=== PATIENT | female | born 1965 | race Caucasian/White ===

== ENCOUNTER 2019-12-14 05:40 | Day surgery (SDC) | payer OTHER ==
--- NOTE | 2019-12-06 18:09 | HP ---
CC: Dr. Elam; Dr. Milan * PREOPERATIVE HISTORY AND PHYSICAL: DATE OF ADMISSION/SURGERY: 12/14/19 This patient is scheduled for same-day surgery admission by Dr. Anaya on , 12/14/19. DATE OF PREOPERATIVE HISTORY AND PHYSICAL EXAMINATION: 12/06/19. ATTENDING SURGEON: Dr. Cyndi Anaya * (dictated by Aliyah Gupta NP). CHIEF COMPLAINT: Primary hyperparathyroidism. HISTORY OF PRESENT ILLNESS: The patient is a 54-year-old female with a history of asthma; psoriatic arthritis; obstructive sleep apnea, on CPAP, who was recently found to have elevated calcium levels on routine labs. She was referred to Dr. Elam, who has been following her for mild primary hyperparathyroidism. Her workup has included a normal 24-hour urinary calcium and repeat labs. Her calcium levels have been intermittently high or high normal, she did have a PTH and calcium that were simultaneously elevated in October of 2018 that confirms her diagnosis of primary hyperparathyroidism. 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 The patient states that she broke her right great toe approximately 15 years ago; she denies any history of kidney stones; her maternal grandmother had a thyroid issue, but she does not know the nature of the condition. The patient denies any head or neck radiation or neck surgery. She is a former smoker. Dr. Anaya reviewed the findings with the patient and has recommended parathyroidectomy as a same-day procedure under general anesthesia; Dr. Anaya discussed the nature of the surgical procedure, the rationale for the procedure , the relevant risks and benefits and today, I reviewed the expected postoperative care and recovery. The patient has had a chance to ask questions and stated that she understand the information and is satisfied with the answers given to her questions. She will sign surgical consent on the day of surgery. PAST MEDICAL HISTORY: Psoriatic arthritis, followed by Dr. 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 PAST SURGICAL HISTORY: section x3; bunionectomy; and toe surgery, right foot in 2016. MEDICATIONS: 1. Otezla 30 mg p.o. b.i.d., which Dr. Carroll stated that the patient could continue before and after surgery. 2. Gabapentin 100 mg 1 capsule b.i.d. 3. B12 5000 mcg sublingual daily. 4. FeroSul 325 mg 1 tablet b.i.d. 5. Vitamin D, dose unknown daily. 6. Symbicort 80/4.5 mcg per actuation 2 puffs b.i.d. 7. Ventolin 2 puffs 4 times a day p.r.n. 8. Flonase 1 spray in each nostril b.i.d. 9. Spiriva 2.5 mcg per actuation 2 puffs daily. 10. Multivitamin 1 tablet daily. 11. Montelukast 10 mg p.o. daily. 12. Cetirizine 10 mg p.o. daily. ALLERGIES: PENICILLIN and TETRACYCLINE both cause shortness of breath, itching , and swelling. She is also allergic to YELLOW JACKET VENOM and she has food allergies to STRAWBERRIES and RASPBERRY JUICE. FAMILY HISTORY: Father at age 72, history of hypercholesterolemia, hypertension. Mother is alive at age 74 with psoriasis, arthritis, and sleep apnea. Maternal grandmother with a history of some type of thyroid disease. No known clotting disorders, bleeding tendencies, or anesthesia complications. SOCIAL HISTORY: She is single and lives with her male partner. She is unemployed; she quit smoking 1 year ago after smoking off and on for approximately 30 years. She denies the use of alcohol or other substances. She is exposed to secondhand smoke. REVIEW OF SYSTEMS: Constitutional: No fevers, chills, excessive fatigue, or weight loss. General: No history of anesthesia complications. No history of deep vein thrombosis or pulmonary embolism. No bleeding tendencies or history of blood transfusions. EENMT: No significant visual difficulties. No problems with hearing. No sore throat or sinus drainage. Endocrine: No diabetes. Parathyroid disease as described in history of present illness. Respiratory: No dyspnea on exertion. No chronic cough. Cardiovascular: No anginal chest pain or palpitations. Gastrointestinal: No nausea, vomiting, diarrhea, GI bleeding, or constipation. Genitourinary: No dysuria. Integumentary: Psoriatic arthritis with multiple psoriatic skin lesions primarily over her elbows, legs, and flank regions. Neurologic: No headache or blurred vision; she does have polyneuropathy with numbness and tingling in fingers and feet. Psychiatric: No reported anxiety, depression, or insomnia. PHYSICAL EXAMINATION GENERAL SURVEY: The patient is a 54-year-old overweight female, in no acute distress, well developed. VITAL SIGNS: Height 60.75 inches, weight 162 pounds, body mass index 30.9. Blood pressure 116/74, pulse 88, respiratory rate 18, temperature 97.6 tympanic. HEENT: Benign. NECK: Supple. No cervical lymphadenopathy. No thyromegaly. LUNGS: Breath sounds bilaterally clear and equal. HEART: Regular rate and rhythm. No murmurs or rubs appreciated. ABDOMEN: Active bowel sounds. Soft, nondistended, nontender throughout. BACK: No CVA tenderness. PELVIC: Exam deferred. RECTAL: Exam deferred. EXTREMITIES: Warm without edema. NEUROLOGIC: Alert and oriented x3. Steady gait. SKIN: Multiple psoriatic lesions on elbows, legs, and flanks. No drainage or signs of infection. IMPRESSION: Primary hyperparathyroidism. PLAN: Same-day surgery admission to Dr. Cyndi Anaya's service for parathyroidectomy on , 12/14/19. STERLING GUPTA, AMILCAR [id number]/[facility] #: [id number] ASIA
[~2019-12-14 05:40] MED LIST: Buffered Lidocaine 1% SYRIN* 1 ML/SYRINGE INTRADERM ONE
[2019-12-14] MEDS ORDERED: Lactated Ringers 1000 ML Bag* 1,000 ML IV SCH (06:00)
[2019-12-14] MEDS ORDERED: Famotidine IV* 10 MG/ML 2 ML (20 mg) IV ONE (06:00)
[2019-12-14] MEDS ORDERED: Buffered Lidocaine 1% SYRIN* 1 ML/SYRINGE INTRADERM ONE ×2 (06:16→07:11)
[2019-12-14] MEDS ORDERED: Famotidine IV* 10 MG/ML 2 ML (20 mg) ONE (06:16)
[2019-12-14] MEDS ORDERED: Lidocaine 1% INJ* 10 MG/ML 30 ML SDV ONE (07:13)
[2019-12-14] MEDS ORDERED: Bupivacaine 0.25% SDV* 30 ML ONE (07:13)
[2019-12-14] MEDS ORDERED: Propofol* 10 MG/ML 20 ML BTL ONE (07:15)
[2019-12-14] MEDS ORDERED: Dexamethasone IV* 4 MG/ML 1 ML (4 MG) ONE (07:15)
[2019-12-14] MEDS ORDERED: Midazolam* 1 MG/ML 5 ML VIAL (5 MG) ONE (07:15)
[2019-12-14] MEDS ORDERED: Scopolamine 1.5 mg* PATCH ONE (07:15)
[2019-12-14] MEDS ORDERED: Ondansetron INJ* 2 MG/ML VIAL ONE (07:15)
[2019-12-14] MEDS ORDERED: Lidocaine 2% PF * 5 ML VIAL ONE (07:15)
[2019-12-14] MEDS ORDERED: Succinylcholine* 20 MG/ML 10 ML VIAL ONE (07:15)
[2019-12-14] MEDS ORDERED: KETAMINE HCL* 50 MG/ML 10 ML VIAL ONE (07:15)
[2019-12-14] MEDS ORDERED: fentaNYL* 50 MCG/ML 2 ML VIAL (100 MCG VIAL) ONE (07:15)
[2019-12-14] MEDS ORDERED: Levalbuterol HFA INHALER* 1 PUFF MDI ONE (07:59)
[2019-12-14] MEDS ORDERED: fentaNYL* 50 MCG/ML 2 ML VIAL (100 MCG VIAL) IV PRN (08:36)
[2019-12-14] MEDS ORDERED: Naloxone* 0.4 MG/ML 1 ML VIAL IV PRN (08:36)
[2019-12-14] MEDS ORDERED: Acetaminophen IV 1GM/100ML * 1,000 MG/100 ML VIAL IVPB ONE (08:36)
[2019-12-14] MEDS ORDERED: Levalbuterol 0.63MG/3ML NEB* UNIT OF USE INH PRN (08:36)
[2019-12-14] MEDS ORDERED: Ondansetron INJ* 2 MG/ML VIAL IV PRN (08:36)
[2019-12-14] MEDS ORDERED: oxyCODONE/Acetamin 5/325 MG* TAB PO PRN (08:57)
--- NOTE | 2019-12-14 09:45 | BRIEFOPN ---
Brief Operative/Procedure Note - Operation Details Pre-Op Diagnosis: primray hyperparathyroidism Post-Op Diagnosis: primary hyperparathyroidism Procedures: left lower parathyroidectomy Surgeon(s)/Proceduralists: Samantha Longo Anesthesia: GETA Findings: enlarged LL parathyroid gland. TYE parathyroid gland was normal Specimen(s)/Culture(s) Description: LL parathyroid Complications: none
--- NOTE | 2019-12-14 14:49 | OP ---
CC: Dr. Christopher Milan; Dr. Dieter Elam. * DATE OF OPERATION: 12/14/19 - SDS DATE OF : 65 SERVICE: General Surgery. ATTENDING SURGEON: Cyndi Anaya MD. SPECIAL EVENTS ASSISTANT: Aliyah Sherman NP ANESTHESIOLOGIST: Dr. Khoi Albright. PREP-OP DIAGNOSIS: Primary hyperparathyroidism. POST-OP DIAGNOSIS: Primary hyperparathyroidism. OPERATIVE PROCEDURE: Left lower parathyroidectomy. ESTIMATED BLOOD LOSS: Minimal, less than 10 cc. SPECIMEN: Left lower parathyroid. INDICATION FOR SURGERY: Ms. Mendez is a very pleasant 54-year-old female with a history of asthma, psoriatic arthritis, and primary hyperparathyroidism. Given her young age, she met criteria for undergoing a parathyroidectomy. Preoperative localization studies identified a left lower parathyroid adenoma. She gave informed consent for a parathyroidectomy. She understood the risks included but were not limited to bleeding, infection and injury to nearby structures nearby such as the recurrent laryngeal nerve. She also understood the risk and the possibility for persistent or recurrent hyperparathyroidism. She understood the alternatives and benefits as well and she wished to proceed. DESCRIPTION OF OPERATION: The patient was brought back to the operating room and placed on the operating table in the supine position. Sequential compression devices were placed in the bilateral lower extremities for DVT prophylaxis. No antibiotics were administered. General endotracheal anesthesia was induced and the electrodes for the nerve monitor were attached. Next, a timeout was performed prior to administering local anesthesia to the neck, which consisted of 0.25% Marcaine and 1% lidocaine mixed. After this her neck was prepped and draped in normal sterile fashion and then prior to beginning the surgery a second timeout was performed verifying the patient's name, date of , and the procedure to be performed. An approximately 4 cm incision was then made in a natural crease line two fingerbreadths about the sternal notch. The skin was divided down to the subcutaneous tissue. The platysma was divided and then the inferior and superior subplatysmal flaps were developed. The median raphe between the strap muscles was identified and divided and the left strap muscles were retracted laterally off the left thyroid lobe. Her preoperative ultrasound clearly visualized an enlarged left lower parathyroid gland just at the inferior aspect of the lower pole of the left thyroid gland. Attention was therefore turned towards the lower aspect of the left thyroid lobe. There is clearly enlarged an adenomatous parathyroid gland present in this location. It was dissected out and its pedicle was divided. At this point, serial PTH levels were obtained , her baseline had been drawn in the preop holding area and then x0 was taken, x5 and x10. While waiting for the intraoperative PTH levels to return, the right thyroid lobe was retracted medially and anteriorly and investigation for the right upper parathyroid gland was undertaken. The right upper parathyroid gland was identified just approximately in the mid pole of the thyroid gland, very posterior, it was clearly a normal-appearing gland surrounded in a small amount of fat. Given that it was normal in appearance, it was left alone. The decision to do this was because in case the numbers do not fall appropriately then we would only have to return to explore the right side. Her PTH levels returned at the following: the baseline was 76.2, time 0 was 131.8, time 5 was 64, and time 10 was 44.3. Given that the [place] criteria was met, the decision was then to conclude this case. Hemostasis was obtained in the left neck. A small amount of Tisseel was placed in the left neck as well and the strap muscles were reapproximated using 4-0 Vicryl sutures. The platysma was reapproximated using interrupted 4-0 Vicryl sutures and a 5-0 Prolene was used to close the skin. Sterile dressing was then placed, the patient's anesthesia was reversed and she was taken to the PACU in stable condition. At end of the case, all counts were correct and I was present during the entirety of the case. [id number]/[facility] #: [id number] ASIA
[2019-12-14 15:10] VITALS: BP 116/72
[2019-12-17] MEDS ORDERED: Scopolamine PATCH Remove* 1 NOTE MISC PATCH OFF ONE (08:37)
== END 2019-12-14 15:26 | disposition home or self-care (01) ==
LOC: OR 05:40
PROVIDERS: ATTEND Surgery
DX: E21.0 Primary hyperparathyroidism (principal); L40.50 Arthropathic psoriasis, unspecified; J44.9 Chronic obstructive pulmonary disease, unspecified; G47.33 Obstructive sleep apnea (adult) (pediatric); G62.9 Polyneuropathy, unspecified; Z87.891 Personal history of nicotine dependence; Z88.0 Allergy status to penicillin; Z88.1 Allergy status to other antibiotic agents
CPT/HCPCS: 36415; 83970; 88305; A9270-GY; C1776; J0330; J1100; J2250; J2405; J2704; J3010; J3490